=== PATIENT | male | born 1965 | race Caucasian/White ===

== ENCOUNTER 2017-06-26 08:58 | Emergency (ER) | payer SELFPAY ==
[~2017-06-26] VITALS: Ht 180.3 cm; Wt 105.0 kg
[~2017-06-26 08:58] MED LIST: GABA300 PO; MIRTA15 PO; NAPR500 PO
[2017-06-26 09:01] VITALS: BP 165/111; PULSE 74; RESP 18; TEMP 98; O2SAT 97
[2017-06-26 09:46] VITALS: BP 154/96; PULSE 66; RESP 22; O2SAT 97
[2017-06-26] MEDS ORDERED: ONDANSETRON HCL 4 MG/2 ML VIAL IVP ONE (10:15)
[2017-06-26] MEDS ORDERED: SODIUM CHLOR 0.9% 1000 ML INJ 1,000 ML IV ONE (10:15)
[2017-06-26] MEDS ORDERED: SODIUM CHLORIDE 0.9% FLUSH 10 ML FLUSH IV FLUSH PRN (10:15)
[2017-06-26] MEDS ORDERED: KETOROLAC TROMETHAMINE 30 MG/ML (IVP) VIAL IVP ONE (10:15)
--- NOTE | 2017-06-26 10:19 | PD ---
HPI Chief Complaint: Abdominal Pain Time Seen by Provider: 10:06 Travel History International Travel<30 days: No Contact w/Intl Traveler<30days: No Traveled to known affect area: No History of Present Illness HPI This patient complains of abdominal pain. Pain is located in the central suprapubic area below the umbilicus. Duration 3 weeks. No alleviating factors. Symptoms severity is mild to moderate. Denies fever. Patient is a heavy alcohol drinker, drinking at least 6 drinks a day. He has history of hep C. He smoked marijuana last night but denies ever using IV drugs. He says his last cocaine use was a year ago. No abdominal surgeries. PFSH Past Medical History Anxiety: Yes Depression: Yes Cardiovascular Problems: Yes High Cholesterol: Yes Diminished Hearing: No Hepatitis: Yes (HEP C) Hypertension: Yes Past Surgical History Tonsillectomy: Yes Social History Alcohol Use: Yes (DAILY) Tobacco Use: No Substance Use: Yes (MARIJUANA OCCASSIONAL) Allergies-Medications (Allergen,Severity, Reaction): Coded Allergies: No Known Allergies (Verified , 06/26/17) Reported Meds & Prescriptions Reported Meds & Active Scripts Active No Active Prescriptions or Reported Medications Review of Systems General / Constitutional: No: Fever Eyes: No: Visual changes HENT: No: Headaches Cardiovascular: No: Chest Pain or Discomfort Respiratory: No: Shortness of Breath Gastrointestinal: Positive: Nausea, Diarrhea, Abdominal Pain Genitourinary: No: Dysuria Musculoskeletal: No: Pain Skin: No Rash Neurologic: No: Weakness Psychiatric: Positive: Substance Abuse, No: Depression Endocrine: No: Polydipsia Hematologic/Lymphatic: No: Easy Bruising Physical Exam Narrative GENERAL: Well-nourished, well-developed patient in no apparent distress. SKIN: Focused skin assessment reveals no rash and nodules. Skin is Warm and dry. HEAD: Atraumatic. Normocephalic. EYES: Pupils equal and round. No scleral icterus. No injection or drainage. ENT: No nasal bleeding or discharge. Mucous membranes pink and moist. NECK: Trachea midline. No JVD. CARDIOVASCULAR: Regular rate and rhythm. No murmur appreciated. RESPIRATORY: No accessory muscle use. Clear to auscultation. Breath sounds equal bilaterally. GASTROINTESTINAL: Abdomen soft, non-tender, nondistended. Hepatic and splenic margins not palpable. MUSCULOSKELETAL: No obvious deformities. No clubbing. No cyanosis. No edema. NEUROLOGICAL: Awake and alert. No obvious cranial nerve deficits. Motor grossly within normal limits. Normal speech. PSYCHIATRIC: Appropriate mood and affect; insight and judgment questionable Data Data Last Documented VS Vital Signs Date Time Temp Pulse Resp B/P Pulse Ox O2 Delivery O2 Flow Rate FiO2 06/26/17 12:12 98.3 66 17 157/88 98 Room Air Orders Complete Blood Count With Diff (06/26/17 10:13) Comprehensive Metabolic Panel (06/26/17 10:13) Lipase (06/26/17 10:13) Iv Access Insert/Monitor (06/26/17 10:13) NPO (06/26/17 10:13) Ondansetron Inj (Zofran Inj) (06/26/17 10:15) Sodium Chloride 0.9% Flush (Ns Flush) (06/26/17 10:15) Ketorolac Inj (Toradol Inj) (06/26/17 10:15) Sodium Chlor 0.9% 1000 Ml Inj (Ns 1000 M (06/26/17 10:15) Labs Laboratory Tests Test 06/26/17 10:27 White Blood Count 11.2 TH/MM3 Red Blood Count 5.68 MIL/MM3 Hemoglobin 17.0 GM/DL Hematocrit 48.5 % Mean Corpuscular Volume 85.4 FL Mean Corpuscular Hemoglobin 29.9 PG Mean Corpuscular Hemoglobin 35.1 % Concent Red Cell Distribution Width 13.0 % Platelet Count 219 TH/MM3 Mean Platelet Volume 9.4 FL Neutrophils (%) (Auto) 72.1 % Lymphocytes (%) (Auto) 19.0 % Monocytes (%) (Auto) 7.7 % Eosinophils (%) (Auto) 0.5 % Basophils (%) (Auto) 0.7 % Neutrophils # (Auto) 8.1 TH/MM3 Lymphocytes # (Auto) 2.1 TH/MM3 Monocytes # (Auto) 0.9 TH/MM3 Eosinophils # (Auto) 0.1 TH/MM3 Basophils # (Auto) 0.1 TH/MM3 CBC Comment DIFF FINAL Differential Comment Sodium Level 137 MEQ/L Potassium Level 4.4 MEQ/L Chloride Level 102 MEQ/L Carbon Dioxide Level 26.7 MEQ/L Anion Gap 8 MEQ/L Blood Urea Nitrogen 10 MG/DL Creatinine 0.89 MG/DL Estimat Glomerular Filtration 89 ML/MIN Rate Random Glucose 106 MG/DL Calcium Level 8.9 MG/DL Total Bilirubin 0.5 MG/DL Aspartate Amino Transf 80 U/L (AST/SGOT) Alanine Aminotransferase 98 U/L (ALT/SGPT) Alkaline Phosphatase 85 U/L Total Protein 7.8 GM/DL Albumin 3.6 GM/DL Lipase 287 U/L MDM Medical Decision Making Medical Screen Exam Complete: Yes Emergency Medical Condition: Yes Medical Record Reviewed: Yes Differential Diagnosis Colitis, irritable bowel syndrome, cystitis Narrative Course I have reviewed the patient's electronic medical record. IV placed CBC was normal metabolic profile was normal LFT's show minimal elevation of LFTs but he is a heavy drinker and has hep C so this is not surprising lipase is normal I gave him IV Zofran and IV Toradol and 1 L normal saline IV bolus Patient is stable for outpatient follow-up. His abdominal pain is mild and nonspecific and he has soft benign nontender abdomen No clinical suspicion of emergent intra-abdominal process Zofran prescribed Diagnosis Primary Impression: Abdominal pain Qualified Code: R10.33 - Periumbilical abdominal pain Additional Instructions: The patient was advised to follow up with their physician and return if they worsen. Med/Other Pt SpecificInfo: Prescription(s) given Scripts Ondansetron (Zofran)4 Mg Tab4 Mg PO Q6HR PRN (NAUSEA OR VOMITING) #12 TAB Ref 0 Prov:Ton Becerra MD 06/26/17 Disposition: 01 DISCHARGE HOME Condition: Stable Ton Becerra MD Jun 26, 2017 10:19
[2017-06-26 10:44] LABS: AUTOMATED NEUTROPHIL # 8.1 TH/MM3 (1.8-7.7); BASOPHIL # 0.1 TH/MM3 (0-0.2); BASOPHIL % 0.7 % (0.0-2.0); EOSINOPHIL # 0.1 TH/MM3 (0-0.4); EOSINOPHIL % 0.5 % (0.0-4.0); HEMATOCRIT 48.5 % (39.0-51.0); HEMO FLAGS DIFF FINAL; LYMPHOCYTE # 2.1 TH/MM3 (1.0-4.8); MEAN CELL VOLUME 85.4 FL (80.0-100.0); MEAN CORPUSCULAR HEMOGLOBIN 29.9 PG (27.0-34.0); MEAN CORPUSCULAR HGB CONC 35.1 % (32.0-36.0); MONO % 7.7 % (0.0-8.0); NEUT % 72.1 % (16.0-70.0); PLATELET COUNT 219 TH/MM3 (150-450); RED BLOOD COUNT 5.68 MIL/MM3 (4.50-5.90); WHITE BLOOD COUNT 11.2 TH/MM3 (4.0-11.0)
[2017-06-26 10:47] VITALS: BP 140/91; PULSE 60; RESP 19; O2SAT 97
[2017-06-26 11:07] LABS: ANION GAP 8 MEQ/L (5-15); AST (GOT) 80 U/L (15-37); BICARBONATE 26.7 MEQ/L (21.0-32.0); BLOOD UREA NITROGEN 10 MG/DL (7-18); CHLORIDE 102 MEQ/L (98-107); GLOMERULAR FILTRATION RATE 89 ML/MIN (>89); SODIUM (NA) 137 MEQ/L (136-145)
[2017-06-26 11:10] LABS: ALKALINE PHOSPHATASE 85 U/L (45-117); ALT (GPT) 98 U/L (12-78); TOTAL BILIRUBIN ADULT 0.5 MG/DL (0.2-1.0)
[2017-06-26 11:12] LABS: POTASSIUM 4.4 MEQ/L (3.5-5.1)
[2017-06-26 12:12] VITALS: BP 157/88; PULSE 66; RESP 17; TEMP 98.3; O2SAT 98
[2017-06-26] MEDS ORDERED: ZOFR4TAB PO (12:29)
== END 2017-06-26 13:26 | disposition home or self-care (01) ==
LOC: NEPD 08:58
DX: R10.33 Periumbilical pain (principal); R11.0 Nausea; R19.7 Diarrhea, unspecified; F41.9 Anxiety disorder, unspecified; F32.9 Major depressive disorder, single episode, unspecified; E78.00 Pure hypercholesterolemia, unspecified; I10 Essential (primary) hypertension; B19.20 Unspecified viral hepatitis C without hepatic coma
CPT/HCPCS: 80053; 83690; 85025; 96361; 96374; 96375; 99284; J1885; J2405; J7030

== ENCOUNTER 2017-10-16 16:47 | Emergency (ER) | payer SELFPAY ==
[~2017-10-16] VITALS: Ht 182.9 cm; Wt 123.0 kg
[~2017-10-16 16:47] MED LIST changes: -GABA300 PO; -MIRTA15 PO; -NAPR500 PO; +ZOFR4TAB PO
[2017-10-16 17:00] VITALS: BP 201/111; PULSE 95; RESP 18; TEMP 98; O2SAT 98
[2017-10-16] MEDS ORDERED: SODIUM CHLOR 0.9% 1000 ML INJ 1,000 ML IV SCH (17:07)
[2017-10-16] MEDS ORDERED: LORazepam 2 MG/ML VIAL IV PUSH ONE (17:15)
[2017-10-16] MEDS ORDERED: SODIUM CHLORIDE 0.9% FLUSH 10 ML FLUSH IV FLUSH PRN (17:15)
--- NOTE | 2017-10-16 17:17 | PD ---
HPI Chief Complaint: Hypertension Time Seen by Provider: 16:57 Travel History International Travel<30 days: No Contact w/Intl Traveler<30days: No Traveled to known affect area: No History of Present Illness HPI This is a 52-year-old male who presents to the emergency department with abdominal pain that's been going on for 2 days, constant, moderate severity, focused right near his belly button, worse with movement and improved with rest. He denies any fevers or chills or vomiting. He says he has never had abdominal pain like this before. He says he came into the emergency department in February for abdominal pain but that was different. He also says he has been cutting back on his drinking. He says he used to drink 16 drinks tonight but lately he has been trying to stick to a 2 or 3. His friend gave him a blood pressure cuff over the holidays and he has been using it in his blood pressure has been running over 200. He said he used to take blood pressure medication but he hasn't taken it in 6 months. He says he took a water pill and lisinopril. He denies any chest pain. COUNTS INCLUDE 234 BEDS AT THE [facility] Past Medical History Arthritis: Yes (RIGHT KNEE) Anxiety: Yes Depression: Yes Cardiovascular Problems: Yes High Cholesterol: Yes Diminished Hearing: No Hepatitis: Yes (HEP C) Hypertension: Yes Influenza Vaccination: No Past Surgical History Tonsillectomy: Yes Social History Alcohol Use: Yes (DAILY) Tobacco Use: No Substance Use: Yes (MARIJUANA OCCASSIONAL) Allergies-Medications (Allergen,Severity, Reaction): Coded Allergies: No Known Allergies (Verified Allergy, Unknown, 10/16/17) Reported Meds & Prescriptions Reported Meds & Active Scripts Active Review of Systems Except as stated in HPI: all other systems reviewed are Neg Physical Exam Narrative GENERAL: Anxious appearing. SKIN: Focused skin assessment warm and dry. HEAD: Atraumatic. Normocephalic. EYES: Pupils equal and round. No injection or drainage. ENT: Moist mucous membranes NECK: Trachea midline. CARDIOVASCULAR: Regular rate and rhythm. No murmur appreciated. RESPIRATORY: Clear to auscultation. Breath sounds equal bilaterally. GASTROINTESTINAL: Abdomen soft, ecchymoses adjacent to the umbilicus with a tender focal area immediately superior to the umbilicus MUSCULOSKELETAL: No obvious deformities. NEUROLOGICAL: Awake and alert. No obvious cranial nerve deficits. Moving all extremities. PSYCHIATRIC: Appropriate mood and affect; insight and judgment normal. Data Data Last Documented VS Vital Signs Date Time Temp Pulse Resp B/P (MAP) Pulse Ox O2 Delivery O2 Flow Rate FiO2 10/16/17 18:51 88 18 193/102 (132) 97 Room Air 10/16/17 17:00 98.0 Orders Orders Complete Blood Count With Diff (10/16/17 17:07) Comprehensive Metabolic Panel (10/16/17 17:07) Lipase (10/16/17 17:07) Ct Abd/Pel W Iv Contrast(Rout) (10/16/17 17:07) Iv Access Insert/Monitor (10/16/17 17:07) Ecg Monitoring (10/16/17 17:07) Oximetry (10/16/17 17:07) Sodium Chlor 0.9% 1000 Ml Inj (Ns 1000 M (10/16/17 17:07) Sodium Chloride 0.9% Flush (Ns Flush) (10/16/17 17:15) Lorazepam Inj (Ativan Inj) (10/16/17 17:15) Iohexol 350 Inj (Omnipaque 350 Inj) (10/16/17 18:01) Lisinopril (Prinivil) (10/16/17 18:45) Hydrochlorothiazide (Microzide) (10/16/17 18:45) Labs Laboratory Tests Test 10/16/17 17:30 White Blood Count 10.2 TH/MM3 Red Blood Count 5.65 MIL/MM3 Hemoglobin 16.0 GM/DL Hematocrit 49.0 % Mean Corpuscular Volume 86.8 FL Mean Corpuscular Hemoglobin 28.4 PG Mean Corpuscular Hemoglobin Concent 32.8 % Red Cell Distribution Width 12.2 % Platelet Count 204 TH/MM3 Mean Platelet Volume 8.2 FL Neutrophils (%) (Auto) 57.8 % Lymphocytes (%) (Auto) 32.2 % Monocytes (%) (Auto) 7.8 % Eosinophils (%) (Auto) 1.7 % Basophils (%) (Auto) 0.5 % Neutrophils # (Auto) 5.8 TH/MM3 Lymphocytes # (Auto) 3.3 TH/MM3 Monocytes # (Auto) 0.8 TH/MM3 Eosinophils # (Auto) 0.2 TH/MM3 Basophils # (Auto) 0.1 TH/MM3 CBC Comment DIFF FINAL Differential Comment Blood Urea Nitrogen 16 MG/DL Creatinine 1.00 MG/DL Random Glucose 117 MG/DL Total Protein 7.9 GM/DL Albumin 3.6 GM/DL Calcium Level 9.6 MG/DL Alkaline Phosphatase 101 U/L Aspartate Amino Transf (AST/SGOT) 89 U/L Alanine Aminotransferase (ALT/SGPT) 120 U/L Total Bilirubin 0.6 MG/DL Sodium Level 134 MEQ/L Potassium Level 3.7 MEQ/L Chloride Level 98 MEQ/L Carbon Dioxide Level 27.5 MEQ/L Anion Gap 9 MEQ/L Estimat Glomerular Filtration Rate 78 ML/MIN Lipase 267 U/L MDM Medical Decision Making Medical Screen Exam Complete: Yes Emergency Medical Condition: Yes Interpretation(s) no leukocytosis transaminitis ct abdomen/pelvis: decreased attenuation of the liver, paraesophageal hernia Differential Diagnosis Hypertension, acute alcohol withdrawal, umbilical hernia, bowel obstruction, pancreatitis Narrative Course This is a 52-year-old male who presents to the emergency department with abdominal discomfort and high blood pressure. He has recently cut back on his drinking which I suspect is contributing to his high blood pressure. He is quite tender around the umbilicus. Labs are obtained which were reassuring. CT abdomen and pelvis demonstrates a paraesophageal hernia but no other acute surgical etiology of his symptoms. Patient was given a milligram of Ativan and his previous home blood pressure medications. I think he can be discharged to follow-up with a primary care physician. He was prescribed lisinopril and hydrochlorothiazide which he's been on in the past. Diagnosis Primary Impression: Abdominal pain Qualified Codes: R10.84 - Generalized abdominal pain Additional Impressions: Paraesophageal hernia Hypertension Qualified Codes: I10 - Essential (primary) hypertension Referrals: [facility] Patient Instructions: General Instructions Additional Instructions: If you develop severe or worsening abdominal pain, fever>100.4, persistent vomiting or inability to eat or drink return to the emergency department immediately. Follow-up with your primary care physician regarding your blood pressure. Med/Other Pt SpecificInfo: Prescription(s) given Scripts Ranitidine (Ranitidine) 150 Mg Tab 150 MG PO DAILY for Heartburn Management, #30 TAB 0 Refills Prov: Tisha Burnett MD 10/16/17 Lisinopril (Lisinopril) 20 Mg Tab 20 MG PO DAILY, #30 TAB 0 Refills Prov: Tisha Burnett MD 10/16/17 Hydrochlorothiazide (Hydrochlorothiazide) 12.5 Mg Cap 12.5 MG PO DAILY, #30 CAP 0 Refills Prov: Tisha Burnett MD 10/16/17 Disposition: 01 DISCHARGE HOME Condition: Stable Tisha Burnett MD Oct 16, 2017 17:17
[2017-10-16 17:38] LABS: AUTOMATED NEUTROPHIL # 5.8 TH/MM3 (1.8-7.7); BASOPHIL # 0.1 TH/MM3 (0-0.2); BASOPHIL % 0.5 % (0.0-2.0); EOSINOPHIL # 0.2 TH/MM3 (0-0.4); EOSINOPHIL % 1.7 % (0.0-4.0); HEMO FLAGS DIFF FINAL; LYMPH % 32.2 % (9.0-44.0); LYMPHOCYTE # 3.3 TH/MM3 (1.0-4.8); MEAN CELL VOLUME 86.8 FL (80.0-100.0); MEAN CORPUSCULAR HEMOGLOBIN 28.4 PG (27.0-34.0); MEAN CORPUSCULAR HGB CONC 32.8 % (32.0-36.0); MONO % 7.8 % (0.0-8.0); NEUT % 57.8 % (16.0-70.0); PLATELET COUNT 204 TH/MM3 (150-450); RED BLOOD COUNT 5.65 MIL/MM3 (4.50-5.90); RED CELL DISTRIBUTION WIDTH 12.2 % (11.6-17.2); WHITE BLOOD COUNT 10.2 TH/MM3 (4.0-11.0)
[2017-10-16 17:46] LABS: CHLORIDE 98 MEQ/L (98-107); POTASSIUM 3.7 MEQ/L (3.5-5.1); SODIUM (NA) 134 MEQ/L (136-145)
[2017-10-16 17:50] LABS: ANION GAP 9 MEQ/L (5-15); BICARBONATE 27.5 MEQ/L (21.0-32.0); BLOOD UREA NITROGEN 16 MG/DL (7-18)
[2017-10-16 17:53] LABS: ALT (GPT) 120 U/L (12-78); AST (GOT) 89 U/L (15-37); GLOMERULAR FILTRATION RATE 78 ML/MIN (>89)
[2017-10-16 17:54] LABS: TOTAL BILIRUBIN ADULT 0.6 MG/DL (0.2-1.0)
[2017-10-16 17:56] LABS: ALKALINE PHOSPHATASE 101 U/L (45-117)
[2017-10-16 18:00] VITALS: RESP 18; O2SAT 97
[2017-10-16] MEDS ORDERED: IOHEXOL 350 MG/ML 10 ML VIAL (for RAD DIAG) IVCONTRAST ONE (18:01)
[2017-10-16 18:24] VITALS: BP 193/104; PULSE 88; RESP 18; O2SAT 97
[2017-10-16] MEDS ORDERED: LISINOPRIL 20 MG TAB PO ONE (18:45)
[2017-10-16] MEDS ORDERED: HYDROCHLOROTHIAZIDE 12.5 MG CAP PO ONE (18:45)
[2017-10-16 18:51] VITALS: BP 193/102; PULSE 88; RESP 18; O2SAT 97
--- NOTE | 2017-10-16 19:04 | RADRPT ---
EXAM DATE/TIME: 10/16/2017 17:54 [facility] COMPARISON: No previous studies available for comparison. INDICATIONS : Mid abdominal pain. IV CONTRAST: 95 cc Omnipaque 350 (iohexol) IV ORAL CONTRAST: No oral contrast ingested. RADIATION DOSE: 23.00 CTDIvol (mGy) MEDICAL HISTORY : Hypertension. Hepatitis C. SURGICAL HISTORY : Tonsillectomy. ENCOUNTER: Initial ACUITY: 2 days PAIN SCALE: 7/10 LOCATION: abdomen TECHNIQUE: Volumetric scanning of the abdomen and pelvis was performed. Using automated exposure control and ad justment of the mA and/or kV according to patient size, radiation dose was kept as low as reasonably achievable to obtain optimal diagnostic quality images. DICOM format image data is available electro nically for review and comparison. FINDINGS: LOWER LUNGS: The visualized lower lungs are clear. There is some stranding in a small tongue of fat adjacent to th e distal esophagus with regional fluid which could represent a small paraesophageal hernia. LIVER: Homogeneous, but decreased density without lesion. There is no dilation of the biliary tree. No henrry cified gallstones. SPLEEN: Normal size without lesion. PANCREAS: Within normal limits. KIDNEYS: Normal in size and shape. There is no mass, stone or hydronephrosis. Small cortical cysts bilaterall y, largest in the lower pole of the right measuring 2 cm ADRENAL GLANDS: Within normal limits. VASCULAR: There is no aortic aneurysm. BOWEL/MESENTERY: A few diverticula in the region of the sigmoid without diverticulitis. Appendix is radiographically n ormal. ABDOMINAL WALL: Within normal limits. RETROPERITONEUM: There is no lymphadenopathy. BLADDER: No wall thickening or mass. REPRODUCTIVE: Prostate is prominent at 5 cm with some dystrophic type calcifications. INGUINAL: 1.9 cm left inguinal hernia only containing fat. MUSCULOSKELETAL: Within normal limits for patient age. CONCLUSION: 1. Diffusely diminished hepatic attenuation with no focal lesion. 2. Small tongue of fat in a paraesophageal distribution at the GE junction with some regional fluid m ay represent a small paraesophageal hernia with inflammation of the regional fat. This may explain so me epigastric discomfort. 3. Minimal diverticular disease of the sigmoid without diverticulitis. Appendix is normal. 4. Renal cortical cysts Bill Moran MD on October 16, 2017 at 18:50 Board Certified Radiologist. This report was verified electronically.
[2017-10-16 19:20] VITALS: BP 187/107; PULSE 87; RESP 18; O2SAT 97
[2017-10-16] MEDS ORDERED: LISI-515 PO (19:21)
[2017-10-16] MEDS ORDERED: RANI150T PO (19:21)
[2017-10-16] MEDS ORDERED: HYDR12.57 PO (19:21)
--- NOTE | 2017-10-17 15:27 | EKG ---
Date Performed: 10/16/2017 Time Performed: 16:51:06 PTAGE: 52 years EKG: Sinus rhythm MARKED LEFT AXIS DEVIATION PATTERN CONSISTENT WITH PULMONARY DISEASE MODERATE VOLTAGE CRITERIA FOR L VH, CONSIDER NORMAL VARIANT. When compared to previous tracing, there is now varying criteria For lef t ventricular hypertrophy. ABNORMAL ECG PREVIOUS TRACING : 02/07/2012 11.31.58 DOCTOR: Roberta Marks Interpretating Date/Time 10/17/2017 15:26:06
== END 2017-10-16 19:45 | disposition home or self-care (01) ==
LOC: PHED 16:47
DX: R10.84 Generalized abdominal pain (principal); K44.9 Diaphragmatic hernia without obstruction or gangrene; I10 Essential (primary) hypertension; R94.31 Abnormal electrocardiogram [ECG] [EKG]; E78.00 Pure hypercholesterolemia, unspecified; Z87.39 Personal history of other diseases of the musculoskeletal system and connective tissue; Z86.59 Personal history of other mental and behavioral disorders; Z86.79 Personal history of other diseases of the circulatory system; Z86.19 Personal history of other infectious and parasitic diseases
CPT/HCPCS: 74177; 80053; 83690; 85025; 93005; 96361; 96374; 99285; J2060; J7030; Q9967

== ENCOUNTER 2017-11-04 11:57 | Observation (INO) | payer SELFPAY ==
[~2017-11-04] VITALS: Ht 182.9 cm; Wt 122.2 kg
[~2017-11-04 11:57] MED LIST changes: +HYDR12.57 PO; +LISI-515 PO; +RANI150T PO; -ZOFR4TAB PO
[2017-11-04 12:00] VITALS: BP 143/86; PULSE 90; RESP 18; TEMP 98.1; O2SAT 96
[2017-11-04] MEDS ORDERED: GABA400C5 PO (12:31)
[2017-11-04] MEDS ORDERED: BUSP5TAB PO (12:31)
[2017-11-04] MEDS ORDERED: SODIUM CHLORIDE 0.9% FLUSH 10 ML FLUSH IVF PRN (12:45)
[2017-11-04] MEDS ORDERED: chlordiazePOXIDE 25 MG CAP PO ONE (13:00)
--- NOTE | 2017-11-04 13:03 | PD ---
HPI Chief Complaint: Hypertension Time Seen by Provider: 12:52 Travel History International Travel<30 days: No Contact w/Intl Traveler<30days: No Traveled to known affect area: No History of Present Illness HPI 52-year-old male patient with history of hypertension, alcohol use daily, anxiety, presents to the ER today because he states that he has been trying to cut down his alcohol since he found out that he had liver issues related to it, and has been cutting down on his drinking over last few days, since then has been very anxious, shaky, and had Some vodka today. He states that this morning when he woke up, he felt tingling down his left arm, chest discomfort, palpitations, and checked his blood pressure and his systolic was 200. He states that he has been seen for elevated blood pressures before as well. He states that it is now improving pain lasted about 2 hours. He states that he is not having much discomfort now but feels quite shaky still and is having palpitations. Modifying Factors: None Associated Signs & Symptoms: Shakiness, chest discomfort, palpitations, left hand tingling, anxiety Risk Factors: Alcohol use, anxiety, hypertension PFSH Past Medical History Arthritis: Yes (RIGHT KNEE) Anxiety: Yes Depression: Yes Cardiovascular Problems: Yes High Cholesterol: Yes Diminished Hearing: No Hepatitis: Yes (HEP C) Hypertension: Yes Influenza Vaccination: No Past Surgical History Tonsillectomy: Yes Social History Alcohol Use: Yes (DAILY) Tobacco Use: No Substance Use: Yes (MARIJUANA OCCASSIONAL) Allergies-Medications (Allergen,Severity, Reaction): Coded Allergies: No Known Allergies (Verified Allergy, Unknown, 11/04/17) Reported Meds & Prescriptions Reported Meds & Active Scripts Active Ranitidine (Ranitidine HCl) 150 Mg Tab 150 Mg PO DAILY Lisinopril 20 Mg Tab 20 Mg PO DAILY Hydrochlorothiazide 12.5 Mg Cap 12.5 Mg PO DAILY Reported Gabapentin 400 Mg Cap 400 Cap PO TID Buspirone (Buspirone HCl) 5 Mg Tab Unknown Dose PO DAILY Review of Systems Except as stated in HPI: all other systems reviewed are Neg Physical Exam Narrative GENERAL: Well-developed anxious appearing middle age white male patient currently in mild distress. Awake and oriented 3. SKIN: Focused skin assessment warm/dry. HEAD: Atraumatic. Normocephalic. EYES: Pupils equal and round. No scleral icterus. No injection or drainage. ENT: No nasal bleeding or discharge. Mucous membranes pink and moist. NECK: Trachea midline. No JVD. Supple. CARDIOVASCULAR: Regular rate and rhythm. No murmur appreciated. Pulses are present and equal bilaterally. RESPIRATORY: No accessory muscle use. Clear to auscultation. Breath sounds equal bilaterally. GASTROINTESTINAL: Abdomen soft, non-tender, nondistended. Hepatic and splenic margins not palpable. MUSCULOSKELETAL: No obvious deformities. No clubbing. No cyanosis. No edema. NEUROLOGICAL: Awake and alert. No obvious cranial nerve deficits. Motor grossly within normal limits. Normal speech. PSYCHIATRIC: Anxious mood and affect; insight and judgment normal. Data Data Last Documented VS Vital Signs Date Time Temp Pulse Resp B/P (MAP) Pulse Ox O2 Delivery O2 Flow Rate FiO2 11/04/17 13:05 Nasal Cannula 2.00 11/04/17 13:05 98 11/04/17 13:05 80 12 11/04/17 12:00 98.1 Orders Orders Electrocardiogram (11/04/17 12:37) Ckmb (Isoenzyme) Profile (11/04/17 12:37) Complete Blood Count With Diff (11/04/17 12:37) Comprehensive Metabolic Panel (11/04/17 12:37) Magnesium (Mg) (11/04/17 12:37) Prothrombin Time / Inr (Pt) (11/04/17 12:37) Act Partial Throm Time (Ptt) (11/04/17 12:37) Troponin I (11/04/17 12:37) Chest, Single Ap (11/04/17 12:37) Ecg Monitoring (11/04/17 12:37) Bilateral Bp Monitoring (11/04/17 12:37) Iv Access Insert/Monitor (11/04/17 12:37) Oximetry (11/04/17 12:37) Oxygen Administration (11/04/17 12:37) Sodium Chloride 0.9% Flush (Ns Flush) (11/04/17 12:45) Chlordiazepoxide (Librium) (11/04/17 13:00) CKMB (11/04/17 13:00) CKMB% (11/04/17 13:00) Lipase (11/04/17 14:17) Admit Order (Ed Use Only) (11/04/17 14:18) Labs Laboratory Tests Test 11/04/17 13:00 White Blood Count 6.6 TH/MM3 Red Blood Count 5.52 MIL/MM3 Hemoglobin 16.0 GM/DL Hematocrit 47.2 % Mean Corpuscular Volume 85.5 FL Mean Corpuscular Hemoglobin 29.0 PG Mean Corpuscular Hemoglobin Concent 34.0 % Red Cell Distribution Width 12.1 % Platelet Count 179 TH/MM3 Mean Platelet Volume 8.7 FL Neutrophils (%) (Auto) 54.1 % Lymphocytes (%) (Auto) 31.2 % Monocytes (%) (Auto) 10.3 % Eosinophils (%) (Auto) 3.0 % Basophils (%) (Auto) 1.4 % Neutrophils # (Auto) 3.6 TH/MM3 Lymphocytes # (Auto) 2.0 TH/MM3 Monocytes # (Auto) 0.7 TH/MM3 Eosinophils # (Auto) 0.2 TH/MM3 Basophils # (Auto) 0.1 TH/MM3 CBC Comment DIFF FINAL Differential Comment Prothrombin Time 11.1 SEC Prothromb Time International Ratio 1.1 RATIO Activated Partial Thromboplast Time 25.4 SEC Blood Urea Nitrogen 16 MG/DL Creatinine 1.00 MG/DL Random Glucose 111 MG/DL Total Protein 8.7 GM/DL Albumin 3.8 GM/DL Calcium Level 8.8 MG/DL Magnesium Level 2.1 MG/DL Alkaline Phosphatase 90 U/L Aspartate Amino Transf (AST/SGOT) 184 U/L Alanine Aminotransferase (ALT/SGPT) 216 U/L Total Bilirubin 1.0 MG/DL Sodium Level 134 MEQ/L Potassium Level 4.4 MEQ/L Chloride Level 98 MEQ/L Carbon Dioxide Level 28.2 MEQ/L Anion Gap 8 MEQ/L Estimat Glomerular Filtration Rate 78 ML/MIN Total Creatine Kinase 321 U/L Creatine Kinase MB 3.5 NG/ML Creatine Kinase MB % 1.1 % Troponin I LESS THAN 0.02 NG/ML MDM Medical Decision Making Medical Screen Exam Complete: Yes Emergency Medical Condition: Yes Medical Record Reviewed: Yes Interpretation(s) EKG shows NSR, no ST elevation or depression, and no arrhythmias. No significant T-wave inversions. Laboratory Tests Test 11/04/17 13:00 Monocytes (%) (Auto) 10.3 % (0.0-8.0) Random Glucose 111 MG/DL (74-106) Total Protein 8.7 GM/DL (6.4-8.2) Aspartate Amino Transf (AST/SGOT) 184 U/L (15-37) Alanine Aminotransferase (ALT/SGPT) 216 U/L (12-78) Sodium Level 134 MEQ/L (136-145) Estimat Glomerular Filtration Rate 78 ML/MIN (>89) Total Creatine Kinase 321 U/L (39-308) Troponin I LESS THAN 0.02 NG/ML Last 24 hours Impressions Chest X-Ray 11/04/17 1237 Signed Impressions: Service Date/Time: Saturday, November 04, 2017 13:09 - CONCLUSION: 1. Low lung volumes which accentuates the right infrahilar region. Formal PA and lateral views of the chest may be obtained if there is continued clinical concern. Alec Fox MD Differential Diagnosis Anxiety attack versus alcohol withdrawals versus hypertensive urgency versus ACS Narrative Course Chest x-ray did not show any signs of acute pulmonary processes. His cardiac enzymes are negative. EKG did not show any signs of dysrhythmias or acute changes. He was given Librium in the ER since he does appear to be anxious and I suspect underlying alcohol withdrawal. On reevaluation at 2 PM, he is feeling improved. His blood pressure has come down on its own. However, considering his history of hypertension, high cholesterol, and chest pain, my plan would be to admit the patient for further evaluation of chest pain. Case is discussed with Dr. Mccann for admission. Diagnosis Primary Impression: Chest pain Additional Impression: Alcohol withdrawal Admitting Information Admitting Physician Requests: Admit Ivy Canela MD Nov 04, 2017 13:03
[2017-11-04 13:05] VITALS: BP 134/87; PULSE 80; RESP 12; O2SAT 98
[2017-11-04 13:07] LABS: AUTOMATED NEUTROPHIL # 3.6 TH/MM3 (1.8-7.7); BASOPHIL # 0.1 TH/MM3 (0-0.2); BASOPHIL % 1.4 % (0.0-2.0); EOSINOPHIL # 0.2 TH/MM3 (0-0.4); HEMATOCRIT 47.2 % (39.0-51.0); HEMO FLAGS DIFF FINAL; LYMPH % 31.2 % (9.0-44.0); MEAN CELL VOLUME 85.5 FL (80.0-100.0); MONO % 10.3 % (0.0-8.0); NEUT % 54.1 % (16.0-70.0); PLATELET COUNT 179 TH/MM3 (150-450); RED BLOOD COUNT 5.52 MIL/MM3 (4.50-5.90); RED CELL DISTRIBUTION WIDTH 12.1 % (11.6-17.2); WHITE BLOOD COUNT 6.6 TH/MM3 (4.0-11.0)
[2017-11-04 13:15] LABS: CHLORIDE 98 MEQ/L (98-107); SODIUM (NA) 134 MEQ/L (136-145)
[2017-11-04 13:19] LABS: ANION GAP 8 MEQ/L (5-15); BICARBONATE 28.2 MEQ/L (21.0-32.0); BLOOD UREA NITROGEN 16 MG/DL (7-18); MAGNESIUM 2.1 MG/DL (1.5-2.5)
[2017-11-04 13:20] LABS: APTT (PATIENT) 25.4 SEC (24.3-30.1); INTERNATIONAL NORMALIZED RATIO 1.1 RATIO; PROTHROMBIN TIME - PATIENT 11.1 SEC (9.8-11.6)
[2017-11-04 13:22] LABS: ALT (GPT) 216 U/L (12-78); AST (GOT) 184 U/L (15-37); GLOMERULAR FILTRATION RATE 78 ML/MIN (>89); POTASSIUM 4.4 MEQ/L (3.5-5.1)
--- NOTE | 2017-11-04 13:24 | RADRPT ---
EXAM DATE/TIME: 11/04/2017 13:09 [facility] COMPARISON: CT ABDOMEN & PELVIS W CONTRAST, October 16, 2017, 17:54. INDICATIONS : Chest pain, left arm tingling MEDICAL HISTORY : Hypertension. Hepatitis C. SURGICAL HISTORY : None. ENCOUNTER: Initial ACUITY: 1 day PAIN SCORE: 5/10 LOCATION: Bilateral chest FINDINGS: Lungs are hypoaerated. There is prominence of the right infrahilar region likely due to incomplete adarsh ng expansion. Cardiomediastinal contours are within normal limits. Bony thorax is intact. CONCLUSION: 1. Low lung volumes which accentuates the right infrahilar region. Formal PA and lateral views of the chest may be obtained if there is continued clinical concern. Alec Fox MD on November 04, 2017 at 13:20 Board Certified Radiologist. This report was verified electronically.
[2017-11-04 13:25] LABS: ALKALINE PHOSPHATASE 90 U/L (45-117); CREATINE KINASE 321 U/L (39-308)
[2017-11-04 13:37] LABS: CKMB 3.5 NG/ML (0.5-3.6)
[2017-11-04 14:28] VITALS: BP 155/97; PULSE 90; RESP 16; O2SAT 98
[2017-11-04 15:22] VITALS: PULSE 91
[2017-11-04 15:30] VITALS: BP 151/81; PULSE 87; RESP 20; TEMP 96.5; O2SAT 97
[2017-11-04] MEDS ORDERED: SODIUM CHLOR 0.9% 1000 ML INJ 1,000 ML IV SCH (15:34)
--- NOTE | 2017-11-04 15:43 | EKG ---
Date Performed: 11/04/2017 Time Performed: 12:42:40 PTAGE: 52 years EKG: Sinus rhythm WITH OCCASIONAL SUPRAVENTRICULAR PREMATURE COMPLEXES, BORDERLINE LEFT AXIS DEVIATION, MINIMAL VOLTAG E CRITERIA FOR LVH, CONSIDER NORMAL VARIANT BORDERLINE ECG NO PREVIOUS TRACING DOCTOR: Mike Aranda Interpretating Date/Time 11/04/2017 15:42:46
[2017-11-04] MEDS ORDERED: MAGNESIUM HYDROXIDE SUSP 30 ML CUP PO PRN (15:45)
[2017-11-04] MEDS ORDERED: ONDANSETRON HCL 4 MG/2 ML VIAL IVP PRN (15:45)
[2017-11-04] MEDS ORDERED: ACETAMINOPHEN 325 MG TAB PO PRN (15:45)
[2017-11-04] MEDS ORDERED: NALOXONE HCL 0.4 MG/ML AMP IV PUSH PRN (15:45)
[2017-11-04] MEDS ORDERED: SODIUM CHLORIDE 0.9% FLUSH 10 ML FLUSH IV FLUSH PRN (15:45)
--- NOTE | 2017-11-04 15:53 | HHI.HP ---
HPI Service [facility] Primary Care Physician No Primary Care Physician Admission Diagnosis chest pains/alcohol withdrawal Diagnoses: Chief Complaint: Elevated blood pressures at home Travel History International Travel<30 Days: No Contact w/Intl Traveler <30 Da: No Traveled to Known Affected Are: No History of Present Illness 86. Patient says he thinks his home cuff is not working well. Patient is a 52 -year-old gentleman with known history of hypertension. He has recently run out of his lisinopril, hydrochlorothiazide and also ran out of his metoprolol sometime ago. Patient's blood pressure at home was 185/141. He became very anxious and Check his blood pressure and it Going up. He did come to the emergency room because of this on arrival here his blood pressure was 143 over 85. He says that he has stopped imbibing as much as he used to and he has been more anxious. Patient says also he had some left-sided shoulder pain radiating into the chest and worse when he moves his arm. He has elevated CPK level. He does have a father who young of cardiac disease and however himself has no cardiac history other than hypertension. He notes no nausea or vomiting. He actually has been in good health and noted that his heart rate was up and since he had cut back on his alcohol. Here he's been well in the chest pain is reducible exam. After Librium, He is much more relaxed now and also since. Patient has elevated liver function tests which may be due to alcohol. Patient also has a history of hepatitis C which was treated with 2 cycles of interferon. The first cycle with incomplete because he did not follow-up with the second time he did get treatment he did complete the course. He knows his blood pressure is not as elevated as high as he thought it was. Patient's been recommended for further evaluation and treatment of uncontrolled blood pressure and atypical chest pain which is most likely musculoskeletal Review of Systems Constitutional: DENIES: Diaphoretic episodes, Fatigue, Fever, Weight gain, Weight loss, Chills, Dizziness, Change in appetite, Night Sweats Endocrine: DENIES: Heat/cold intolerance, Polydipsia, Polyuria, Polyphagia Eyes: DENIES: Blurred vision, Diplopia, Eye inflammation, Eye pain, Vision loss , Photosensitivity, Double Vision Ears, nose, mouth, throat: DENIES: Tinnitus, Hearing loss, Vertigo, Nasal discharge, Oral lesions, Throat pain, Hoarseness, Ear Pain, Running Nose, Epistaxis, Sinus Pain, Toothache, Odynophagia Respiratory: DENIES: Apneas, Cough, Snoring, Wheezing, Hemoptysis, Sputum production, Shortness of breath Cardiovascular: DENIES: Chest pain, Palpitations, Syncope, Dyspnea on Exertion , PND, Lower Extremity Edema, Orthopnea, Claudication Gastrointestinal: DENIES: Abdominal pain, Black stools, Bloody stools, Constipation, Diarrhea, Nausea, Vomiting, Difficulty Swallowing, Anorexia Genitourinary: DENIES: Sexual dysfunction, Urinary frequency, Urinary incontinence, Urgency, Hematuria, Dysuria, Nocturia, Penile Discharge, Testicular Pain, Testicular Swelling Musculoskeletal: COMPLAINS OF: Muscle aches, DENIES: Joint pain, Stiffness, Joint Swelling, Back pain, Neck pain Integumentary: DENIES: Abnormal pigmentation, Nail changes, Pruritus, Rash Hematologic/lymphatic: DENIES: Bruising, Lymphadenopathy Immunologic/allergic: DENIES: Eczema, Urticaria Neurologic: DENIES: Abnormal gait, Headache, Localized weakness, Paresthesias, Seizures, Speech Problems, Tremor, Poor Balance Psychiatric: DENIES: Anxiety, Confusion, Mood changes, Depression, Hallucinations, Agitation, Suicidal Ideation, Homicidal Ideation, Delusions Except as stated in HPI: all other systems reviewed are Neg Past Family Social History Past Medical History Hepatitis C, previously treated with interferon 2 (first episode incomplete treatment) ( Hypertension Alcohol dependency Past Surgical History Tonsillectomy Reported Medications reviewed in the EMR, ran out of his blood pressure medications Allergies: Coded Allergies: No Known Allergies (Verified Allergy, Unknown, 11/04/17) Active Ordered Medications Reviewed in the EMR Family History Mother is healthy but did have a stroke Father from heart disease in his 60s Social History No tobacco, 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 Physical Exam Vital Signs Vital Signs Date Time Temp Pulse Resp B/P (MAP) Pulse Ox O2 Delivery O2 Flow Rate FiO2 11/04/17 15:26 11/04/17 14:28 98 Nasal Cannula 11/04/17 14:28 90 16 155/97 (116) 98 11/04/17 13:05 Nasal Cannula 2.00 11/04/17 13:05 98 Nasal Cannula 2.00 11/04/17 13:05 80 12 134/87 (103) 98 Room Air 11/04/17 12:00 98.1 90 18 143/86 (105) 96 Physical Exam GENERAL: This is a well-nourished, well-developed patient, in no apparent distress. SKIN: No rashes, ecchymoses or lesions. Cool and dry. HEAD: Atraumatic. Normocephalic. No temporal or scalp tenderness. EYES: Pupils equal round and reactive. Extraocular motions intact. No scleral icterus. No injection or drainage. ENT: Nose without bleeding, purulent drainage or septal hematoma. Throat without erythema, tonsillar hypertrophy or exudate. Uvula midline. Airway patent. NECK: Trachea midline. No JVD or lymphadenopathy. Supple, nontender, no meningeal signs. CARDIOVASCULAR: Regular rate and rhythm without murmurs, gallops, or rubs. RESPIRATORY: Clear to auscultation. Breath sounds equal bilaterally. No wheezes , rales, or rhonchi. GASTROINTESTINAL: Abdomen soft, non-tender, nondistended. No hepato-splenomegaly , or palpable masses. No guarding. MUSCULOSKELETAL: Reproducible chest pain on exam and worse with rotating left shoulder, Extremities without clubbing, cyanosis, or edema. No joint tenderness , effusion, or edema noted. No calf tenderness. Negative Homans sign bilaterally. NEUROLOGICAL: Awake and alert. Cranial nerves II through XII intact. Motor and sensory grossly within normal limits. Five out of 5 muscle strength in all muscle groups. Normal speech. Laboratory Laboratory Tests Test 11/04/17 13:00 White Blood Count 6.6 Red Blood Count 5.52 Hemoglobin 16.0 Hematocrit 47.2 Mean Corpuscular Volume 85.5 Mean Corpuscular Hemoglobin 29.0 Mean Corpuscular Hemoglobin Concent 34.0 Red Cell Distribution Width 12.1 Platelet Count 179 Mean Platelet Volume 8.7 Neutrophils (%) (Auto) 54.1 Lymphocytes (%) (Auto) 31.2 Monocytes (%) (Auto) 10.3 Eosinophils (%) (Auto) 3.0 Basophils (%) (Auto) 1.4 Neutrophils # (Auto) 3.6 Lymphocytes # (Auto) 2.0 Monocytes # (Auto) 0.7 Eosinophils # (Auto) 0.2 Basophils # (Auto) 0.1 CBC Comment DIFF FINAL Differential Comment Prothrombin Time 11.1 Prothromb Time International Ratio 1.1 Activated Partial Thromboplast Time 25.4 Blood Urea Nitrogen 16 Creatinine 1.00 Random Glucose 111 Total Protein 8.7 Albumin 3.8 Calcium Level 8.8 Magnesium Level 2.1 Alkaline Phosphatase 90 Aspartate Amino Transf (AST/SGOT) 184 Alanine Aminotransferase (ALT/SGPT) 216 Total Bilirubin 1.0 Sodium Level 134 Potassium Level 4.4 Chloride Level 98 Carbon Dioxide Level 28.2 Anion Gap 8 Estimat Glomerular Filtration Rate 78 Total Creatine Kinase 321 Creatine Kinase MB 3.5 Creatine Kinase MB % 1.1 Troponin I LESS THAN 0.02 Lipase 228 Result Diagram: 11/04/17 1300 11/04/17 1300 Imaging Last Impressions Chest X-Ray 11/04/17 1237 Signed Impressions: Service Date/Time: Saturday, November 04, 2017 13:09 - CONCLUSION: 1. Low lung volumes which accentuates the right infrahilar region. Formal PA and lateral views of the chest may be obtained if there is continued clinical concern. Alec Fox MD Caprini VTE Risk Assessment Caprini VTE Risk Assessment: Mod/High Risk (score >= 2) Caprini Risk Assessment Model Point Value = 1 Point Value = 2 Point Value = 3 Point Value = 5 Age 41-60 Minor surgery BMI > 25 kg/m2 Swollen legs Varicose veins or History of unexplained or recurrent spontaneous Oral contraceptives or hormone replacement Sepsis (< 1 month) Serious lung disease, including pneumonia (< 1 month) Abnormal pulmonary function Acute myocardial infarction Congestive heart failure (< 1 month) History of inflammatory bowel disease Medical patient at bed rest Age 61-74 Arthroscopic surgery Major open surgery (> 45 min) Laparoscopic surgery (> 45 min) Malignancy Confined to bed (> 72 hours) Immobilizing plaster cast Central venous access Age >= 75 History of VTE Family history of VTE Factor V Leiden Prothrombin 28419A Lupus anticoagulant Anticardiolipin antibodies Elevated serum homocysteine Heparin-induced thrombocytopenia Other congenital or acquired thrombophilia Stroke (< 1 month) Elective arthroplasty Hip, pelvis, or leg fracture Acute spinal cord injury (< 1 month) Prophylaxis Regimen Total Risk Factor Score Risk Level Prophylaxis Regimen 0-1 Low Early ambulation 2 Moderate Order ONE of the following: *Sequential Compression Device (SCD) *Heparin 5000 units SQ BID 3-4 Higher Order ONE of the following medications: *Heparin 5000 units SQ TID *Enoxaparin/Lovenox 40 mg SQ daily (WT < 150 kg, CrCl > 30 mL/min) *Enoxaparin/Lovenox 30 mg SQ daily (WT < 150 kg, CrCl > 10-29 mL/min) *Enoxaparin/Lovenox 30 mg SQ BID (WT < 150 kg, CrCl > 30 mL/min) AND/OR *Sequential Compression Device (SCD) 5 or more Highest Order ONE of the following medications: *Heparin 5000 units SQ TID (Preferred with Epidurals) *Enoxaparin/Lovenox 40 mg SQ daily (WT < 150 kg, CrCl > 30 mL/min) *Enoxaparin/Lovenox 30 mg SQ daily (WT < 150 kg, CrCl > 10-29 mL/min) *Enoxaparin/Lovenox 30 mg SQ BID (WT < 150 kg, CrCl > 30 mL/min) AND *Sequential Compression Device (SCD) Assessment and Plan Problem List: (1) HTN (hypertension) ICD Code: I10 - Essential (primary) hypertension Plan: Continue lisinopril, hydrochlorothiazide and add Coreg We'll watch for titration needs (2) ETOH abuse ICD Code: F10.10 - Alcohol abuse, uncomplicated Plan: patient admits "cutting back ", he is involved in act for psychosocial support Lower extremity signs of withdrawal Librium twice a day (3) Rhabdomyolysis ICD Code: M62.82 - Rhabdomyolysis Plan: Continue trending, follow with IV hydration (4) Chest pain ICD Code: R07.9 - Chest pain, unspecified Status: Acute Plan: Vague and likely musculoskeletal as it is reproducible on exam and with elevated CPK levels We'll follow cardiac enzymes (5) LFT elevation ICD Code: R79.89 - Other specified abnormal findings of blood chemistry Plan: patient with a history of hepatitis C previously treated We'll continue to follow my most likely due to alcohol and also uses Code Status Full code Discussed Condition With Plan of care discussed with GERALD Earl and patient Dasha Mccann MD Nov 04, 2017 15:53
[2017-11-04] MEDS: GABAPENTIN 400 MG CAP PO SCH (17:01)
[2017-11-04] MEDS: SODIUM CHLOR 0.9% 1000 ML INJ 1,000 ML IV SCH (17:02)
[2017-11-04] MEDS: SODIUM CHLORIDE 0.9% FLUSH 10 ML FLUSH IV FLUSH SCH (20:42)
[2017-11-04] MEDS: FAMOTIDINE 20 MG TAB PO SCH (20:42)
[2017-11-04] MEDS: CARVEDILOL 6.25 MG TAB PO SCH (20:42)
[2017-11-04 21:29] VITALS: BP 156/90; PULSE 91; RESP 18; TEMP 97.8; O2SAT 94
[2017-11-05 00:05] VITALS: BP 134/81; PULSE 75; RESP 20; TEMP 98.1; O2SAT 95
[2017-11-05] MEDS: SODIUM CHLOR 0.9% 1000 ML INJ 1,000 ML IV SCH ×2 (01:45→04:00)
[2017-11-05] MEDS ORDERED: LORazepam 1 MG TAB PO ONE (02:45)
[2017-11-05 03:46] VITALS: PULSE 97
[2017-11-05 04:03] VITALS: BP 139/87; PULSE 78; RESP 18; TEMP 98; O2SAT 97
[2017-11-05 07:01] VITALS: PULSE 62
[2017-11-05 08:00] VITALS: BP 139/92; PULSE 82; RESP 18; TEMP 97.9; O2SAT 98
[2017-11-05] MEDS: SODIUM CHLORIDE 0.9% FLUSH 10 ML FLUSH IV FLUSH SCH (08:06)
[2017-11-05] MEDS: FAMOTIDINE 20 MG TAB PO SCH (08:10)
[2017-11-05] MEDS: CARVEDILOL 6.25 MG TAB PO SCH (08:12)
[2017-11-05] MEDS: GABAPENTIN 400 MG CAP PO SCH ×2 (08:12→12:27)
[2017-11-05] MEDS ORDERED: CARV6.25 PO (08:46)
--- NOTE | 2017-11-05 08:46 | HHI.DCPOC ---
Discharge Care Plan Diagnosis: (1) Rhabdomyolysis (2) Abdominal pain (3) HTN (hypertension) Goals to Promote Your Health * To prevent worsening of your condition and complications * To maintain your health at the optimal level Directions to Meet Your Goals Take your medications as prescribed Follow your dietary instruction Follow activity as directed Keep your appointments as scheduled Take your immunizations and boosters as scheduled If your symptoms worsen call your PCP, if no PCP go to Urgent Care Center or Emergency Room Smoking is Dangerous to Your Health. Avoid second hand smoke Call the 24-hour hour crisis hotline for domestic abuse at Dasha Mccann MD Nov 05, 2017 08:46
--- NOTE | 2017-11-05 08:48 | HHI.PR ---
Subjective Remarks Patient seen today in follow-up for elevated blood pressure and anxiety. Blood pressure improved with the addition of Coreg CPK and troponin normal No further musculoskeletal discomfort after Tylenol Discharge plans discussed with patient Objective Vitals Vital Signs Date Time Temp Pulse Resp B/P (MAP) Pulse Ox O2 Delivery O2 Flow Rate FiO2 11/05/17 04:03 98.0 78 18 139/87 (104) 97 11/05/17 03:46 97 11/05/17 00:05 98.1 75 20 134/81 (98) 95 11/04/17 21:29 97.8 91 18 156/90 (112) 94 11/04/17 15:30 96.5 87 20 151/81 (104) 97 11/04/17 15:26 11/04/17 15:22 91 11/04/17 14:28 98 Nasal Cannula 11/04/17 14:28 90 16 155/97 (116) 98 11/04/17 13:05 Nasal Cannula 2.00 11/04/17 13:05 98 Nasal Cannula 2.00 11/04/17 13:05 80 12 134/87 (103) 98 Room Air 11/04/17 12:00 98.1 90 18 143/86 (105) 96 I/O 11/04/17 11/04/17 11/04/17 11/05/17 11/05/17 11/05/17 07:00 15:00 23:00 07:00 15:00 23:00 Intake Total 600 ml 300 ml Balance 600 ml 300 ml Intake Oral 600 ml IV Total 300 ml # Voids 4 Result Diagram: 11/04/17 1300 11/04/17 1300 Objective Remarks GENERAL: This is a well-nourished, well-developed patient, in no apparent distress. CARDIOVASCULAR: Regular rate and rhythm without murmurs, gallops, or rubs. RESPIRATORY: Clear to auscultation. Breath sounds equal bilaterally. No wheezes , rales, or rhonchi. GASTROINTESTINAL: Abdomen soft, non-tender, nondistended. Normal active bowel sounds MUSCULOSKELETAL: Extremities without clubbing, cyanosis, or edema. NEURO: Alert & Oriented x4 to person, place, time, situation. Moves all ext x4 A/P Problem List: (1) HTN (hypertension) ICD Code: I10 - Essential (primary) hypertension Plan: Continue lisinopril, hydrochlorothiazide, Coreg Improved (2) ETOH abuse ICD Code: F10.10 - Alcohol abuse, uncomplicated Plan: patient admits "cutting back ", he is involved in act for psychosocial support Lower extremity signs of withdrawal Patient is not discontinuing alcohol and therefore Librium prescribed at discharge follow up ACT monday (3) Rhabdomyolysis ICD Code: M62.82 - Rhabdomyolysis Plan: Resolved (4) Chest pain ICD Code: R07.9 - Chest pain, unspecified Status: Acute Plan: Vague and likely musculoskeletal as it is reproducible on exam and with elevated CPK levels Cardiac enzymes unremarkable Discharge Planning Discharge home Activity as tolerated Diet heart healthy Dasha Mccann MD Nov 05, 2017 08:48
[2017-11-05] MEDS ORDERED: LISINOPRIL 20 MG TAB PO SCH (09:00)
[2017-11-05] MEDS ORDERED: HYDROCHLOROTHIAZIDE 12.5 MG CAP PO SCH (09:00)
[2017-11-05] MEDS ORDERED: PNEUMOCOCCAL POLYVALENT INJ 25 MCG/0.5 ML SYR IM ONE (10:00)
[2017-11-05] MEDS ORDERED: INFLUENZA VIRUS VACCINE (QUADRIVALENT) 0.5 ML SYR IM ONE (10:00)
[2017-11-05] MEDS ORDERED: LISI-515 PO (10:49)
[2017-11-05] MEDS ORDERED: HYDR12.57 PO (10:49)
== END 2017-11-05 16:00 | disposition home or self-care (01) ==
LOC: PHED 11:57 → PHEDA 14:19 → PH3B 15:21
PROVIDERS: ADMIT Hospitalist; ATTEND Hospitalist
DX: I10 Essential (primary) hypertension (principal); F10.239 Alcohol dependence with withdrawal, unspecified; M62.82 Rhabdomyolysis; R07.9 Chest pain, unspecified; R94.31 Abnormal electrocardiogram [ECG] [EKG]; R74.8 Abnormal levels of other serum enzymes; F41.9 Anxiety disorder, unspecified; Z82.49 Family history of ischemic heart disease and other diseases of the circulatory system; Z23 Encounter for immunization
CPT/HCPCS: 71010; 80053; 82550; 82552; 83690; 83735; 84484; 85025; 85610; 85730; 90471; 90686; 93005; 96360; 96361; 96372; 99285; G0378; J7030; G0008; Q2038